=== PATIENT | male | born 1955 | race Two or more races ===

== ENCOUNTER 2023-02-28 00:18 | Emergency (ER) | payer OTHER ==
[~2023-02-28] VITALS: Ht 180.3 cm; Wt 88.5 kg
[2023-02-28] MEDS ORDERED: CRESTOR20 MG (00:26)
[2023-02-28] MEDS ORDERED: PREVACID30 M1 (00:27)
[2023-02-28] MEDS ORDERED: FOLIC ACID0.8 M1 (00:27)
[2023-02-28 01:52] LABS: HEMATOCRIT 37.3 % (39.0-48.0); HEMOGLOBIN 13.2 g/dL (13-16.00); MEAN CORPUSCULAR HEMOGLOBIN 33.2 pg (27.00-32.0); MEAN CORPUSCULAR HGB CONC 35.3 g/dl (32.0-36.0); PLATELET COUNT 202 K/uL (150-450); RED BLOOD COUNT 3.97 M/uL (4.00-6.00); RED CELL DISTRIBUTION WIDTH 13.2 % (11.5-14.5)
[2023-02-28 02:17] LABS: CALCIUM 8.9 mg/dL (8.5-10.1); CREATININE SERUM 1.44 mg/dL (0.70-1.30); GFR 49.08; POTASSIUM 3.62 mEq/L (3.5-5.1)
[2023-02-28 02:52] LABS: PH,URINE 5.5 (5.0-8.0); URINE APPEARANCE Cloudy; URINE BILIRRUBIN Small (NEGATIVE); URINE BLOOD Large; URINE COLOR Dark Yellow; URINE GLUCOSE Negative (NEGATIVE); URINE LEUKOCYTE Small; URINE NITRATE Negative
[2023-02-28 02:56] LABS: URINE BACTERIA 70.5 uL (0.0-1933); URINE EPITHELIAL CELLS 42.8 uL (0.0-38.8); URINE RBC 776.3 uL (0.0-20.8); URINE WBC 183.6 uL (0.0-23.2)
[2023-02-28 03:14] LABS: URINE PROTEIN 100 (NEGATIVE)
[2023-02-28] MEDS ORDERED: CIPRO500 MG PO (04:32)
[2023-02-28] MEDS ORDERED: DOLOGESIC-DF 51 EACH PO (04:32)
== END 2023-02-28 04:38 ==
LOC: ER 00:19
PROVIDERS: General Practice
DX: R10.84 Generalized abdominal pain (principal); R50.9 Fever, unspecified; N39.0 Urinary tract infection, site not specified